=== PATIENT | female | born 1970 | race Caucasian/White ===

== ENCOUNTER 2019-08-03 12:13 | Emergency (ER) | payer BC, SELFPAY ==
[2019-08-03 12:26] VITALS: BP 97/56; PULSE 81; RESP 20; TEMP 36.9; O2SAT 98
--- NOTE | 2019-08-03 12:30 | ED.URI ---
HPI - URI/Sore Throat General Chief Complaint: Upper Respiratory Infection Stated Complaint: fever tired and achey Time Seen by Provider: 08/03/19 12:31 Source: patient, family and RN notes reviewed History of Present Illness HPI Narrative: Patient is a 49-year-old female presents the urgent care with complaints of fever, fatigue, body aches, chills. Patient states that started on Saturday and she has been using Tylenol for her symptoms [id number]. Denies any nausea or vomiting. Denies sore throat or headache. No other acute complaints. No acute distress noted. Patient read the plan of care. Related Data Home Medications Medication Instructions Recorded Confirmed calcium citrate 250 mg PO BID 04/28/19 Allergies Allergy/AdvReac Type Severity Reaction Status Date / Time strawberry Allergy Unknown Unknown Verified 08/03/19 12:39 Review of Systems Review of Systems: Narrative: CONSTITUTIONAL: Reports a fever and chills, fatigue EYES: Denies visual changes, redness, or discharge. ENT: Denies rhinorrhea, congestion, sore throat, or otalgia. CARDIOVASCULAR: Denies chest pain, palpitations, or edema. RESPIRATORY: Denies cough or dyspnea. GASTROINTESTINAL: Denies abdominal pain, nausea, vomiting, or diarrhea. GENITOURINARY: Denies dysuria or hematuria. SKIN: Denies rash or itching. MUSCULOSKELETAL: Denies back pain, joint pain; reports of body aches NEUROLOGIC: Denies headache, numbness, or weakness. All other systems reviewed are negative, except as documented in HPI. [facility] Social History Social History Smoking status: Current some day smoker Alcohol intake: current Exam Narrative: Exam Narrative: GENERAL: This is a well-nourished, well-developed patient, in no apparent distress. HEAD: normocephalic, atraumatic. EYES: PERRL. Sclera clear/white. Vision is grossly intact. EARS: External ears normal, auditory canals clear and without drainage, TMs normal without perforation. Hearing grossly intact. NOSE: External nose normal with no obvious nasal discharge, nares without redness, no rhinorrhea. THROAT: Mucous membranes moist, posterior pharynx clear. NECK: Neck supple, non-tender without lymphadenopathy CARDIOVASCULAR: Regular rate and rhythm without murmurs, gallops, or rubs. RESPIRATORY: Clear to auscultation. Breath sounds equal bilaterally. No wheezes, rales, or rhonchi. SKIN: warm, intact with no suspicious lesions or rash, good texture and turgor. NEURO: awake, alert, and oriented to person, place and time. There were no obvious focal neurologic abnormalities. EXTREMITIES: No clubbing, cyanosis, or edema. Course Vital Signs Vital signs: Vital Signs Temperature 98.5 F 08/03/19 12:26 Pulse Rate 81 08/03/19 12:26 Respiratory Rate 20 08/03/19 12:26 Blood Pressure 97/56 L 08/03/19 12:26 Pulse Oximetry 98 08/03/19 12:26 Temperature 98.5 F 08/03/19 12:26 Pulse Rate 81 08/03/19 12:26 Respiratory Rate 20 08/03/19 12:26 Blood Pressure 97/56 L 08/03/19 12:26 Pulse Oximetry 98 08/03/19 12:26 Reviewed MDM - URI/Sore Throat MDM Narrative Medical decision making narrative: Reviewed lab results with the patient. She is aware that flu swab was negative. Advised the patient to continue to use Tylenol for body aches and fever. Increase fluids and rest. Use humidifier at night. If you continue to experience high fevers associated with fatigue and body aches, follow-up with PCP or in the emergency room. Differential Diagnosis Differential diagnosis: Likely upper respiratory infection, otitis media, sinusitis, viral infection, bronchitis, influenza and pharyngitis Lab Data Attestation: I reviewed the patient's lab results. Critical Care Time Critical Care Time Critical Care Time: No Discharge Plan Discharge Clinical Impression: Acute viral syndrome Patient Disposition: Home, Self-Care Condition: Stable Instruction
== END 2019-08-03 13:10 | disposition home or self-care (01) ==
PROVIDERS: Emergency Provider Nurse Practitioner Family; PCP Family Medicine
DX: B34.9 Viral infection, unspecified (principal); F17.290 Nicotine dependence, other tobacco product, uncomplicated; K21.9 Gastro-esophageal reflux disease without esophagitis
CPT/HCPCS: 87804; 99213; G0463

== ENCOUNTER → 2019-10-14 14:11 | Outpatient (REF) | payer BC, SELFPAY | LOC: ANHLAB 14:11 | PROVIDERS: PCP Family Medicine; Visit Provider Nurse Practitioner Family | DX: D49.2 Neoplasm of unspecified behavior of bone, soft tissue, and skin (principal); C44.311 Basal cell carcinoma of skin of nose | CPT/HCPCS: 88305 ==

== ENCOUNTER → 2019-11-04 07:44 | Outpatient (REF) | payer BC, SELFPAY | LOC: ANHLAB 07:44 | PROVIDERS: PCP Family Medicine; Visit Provider Nurse Practitioner Family | DX: C44.321 Squamous cell carcinoma of skin of nose (principal) | CPT/HCPCS: 88305; 88331 ==

== ENCOUNTER 2020-01-15 18:37 | Emergency (ER) | payer BC, SELFPAY ==
[2020-01-15 18:46] VITALS: BP 126/58; PULSE 93; RESP 16; TEMP 37; O2SAT 98
--- NOTE | 2020-01-15 18:51 | ED.DENTAL ---
HPI - Dental/Oral General Chief complaint: Dental/Oral Stated complaint: Tooth Abcess Time Seen by Provider: 01/15/20 18:51 Source: patient and RN notes reviewed History of Present Illness HPI Narrative: Patient is a 49-year-old female who presents the urgent care with complaints of dental pain. Patient states that she was seen at the dentist office on Saturday and was told that her crown was cracked and that she would follow-up. Patient states that the pain been started yesterday and she called her dentist who was supposed to be able to see her this morning however, patient canceled the appointment. Patient then decided to try to go to work and her temperature was elevated so they sent her home. Patient tried to call her dentist back for the appointment and they stated that they had filled the slots and she would need to follow-up elsewhere. Her work is not letting her return until she has seen for the dental pain. Patient states she has not taken anything for her pain but does have access to tramadol at home. Patient states she does have a poor taste in her mouth but denies of any nausea or vomiting. Patient is currently afebrile. No other acute complaints. No acute distress noted. Patient read the plan of care. Related Data Home Medications Medication Instructions Recorded Confirmed calcium citrate 250 mg PO BID 04/28/19 08/03/19 Allergies Allergy/AdvReac Type Severity Reaction Status Date / Time strawberry Allergy Unknown Unknown Verified 11/26/19 13:44 Review of Systems Review of Systems: Narrative: CONSTITUTIONAL: Denies fever, chills, or sweats. EYES: Denies visual changes, redness, or discharge. ENT: Denies rhinorrhea, congestion, sore throat, or otalgia. Reports of left upper dental pain and bad taste in the mouth CARDIOVASCULAR: Denies chest pain, palpitations, or edema. RESPIRATORY: Denies cough or dyspnea. GASTROINTESTINAL: Denies abdominal pain, nausea, vomiting, or diarrhea. GENITOURINARY: Denies dysuria or hematuria. SKIN: Denies rash or itching. MUSCULOSKELETAL: Denies back pain, joint pain, or myalgia. NEUROLOGIC: Denies headache, numbness, or weakness. All other systems reviewed are negative, except as documented in HPI. [facility] Social History Social History Smoking status: Current some day smoker Alcohol intake: current Comments At the time of my signature, I reviewed and agree with the nursing past medical, surgical, social, and family history. There is no relevant family history pertinent to the patient complaint. Exam Narrative: Exam Narrative: GENERAL: This is a well-nourished, well-developed patient, in no apparent distress. HEAD: normocephalic, atraumatic. EYES: PERRL. Sclera clear/white. Vision is grossly intact. EARS: External ears normal NOSE: External nose normal with no obvious nasal discharge, nares without redness, no rhinorrhea. THROAT: Mucous membranes moist DENTAL: Left upper second molar, tooth #15 with mild surrounding erythema and cracked posterior crown NECK: Neck supple SKIN: warm, intact with no suspicious lesions or rash, good texture and turgor. NEURO: awake, alert, and oriented to person, place and time. There were no obvious focal neurologic abnormalities. EXTREMITIES: No clubbing, cyanosis, or edema. Course Vital Signs Vital signs: Vital Signs Temperature 98.6 F 01/15/20 18:46 Pulse Rate 93 01/15/20 18:46 Respiratory Rate 16 01/15/20 18:46 Blood Pressure 126/58 L 01/15/20 18:46 Pulse Oximetry 98 01/15/20 18:46 Temperature 98.6 F 01/15/20 18:46 Pulse Rate 93 01/15/20 18:46 Respiratory Rate 16 01/15/20 18:46 Blood Pressure 126/58 L 01/15/20 18:46 Pulse Oximetry 98 01/15/20 18:46 Reviewed MDM - Dental/Oral MDM Narrative Medical decision making narrative: Advised the patient to use at home prescription of tramadol or Tylenol as needed for pain. Swish with prevention mouthwash
== END 2020-01-15 19:05 | disposition home or self-care (01) ==
PROVIDERS: Emergency Provider Nurse Practitioner Family; PCP Family Medicine
DX: K04.7 Periapical abscess without sinus (principal); F17.200 Nicotine dependence, unspecified, uncomplicated; Z98.84 Bariatric surgery status; K21.9 Gastro-esophageal reflux disease without esophagitis; F32.9 Major depressive disorder, single episode, unspecified
CPT/HCPCS: 99213; G0463

== ENCOUNTER 2023-05-20 14:45 | Outpatient (RCR) | payer BC, SELFPAY ==
--- NOTE | 2023-03-15 09:39 | PTOPEVAL1 ---
Assessment and note entered by Yesi Barragan, PT Evaluation Information Assessment Status Evaluation Diagnosis Ataxia, CVA Therapy Conditions oth. abnormalities of gait and mobility, weakness Onset 05/2022 Subjective Information Was living in [place] had first stroke and a second stroke the next day. Was airlifted to [facility]. The was sent to [facility]. Had Foot drop and started doing my own therapy . Started walkin in hallways, sit to stands in chair. Was waiting for Insurance to clear and one of the therapists gave her some homework to work on her own. Was moved to [facility] once a week very minimal. Now has jimmie able to move into home with her daughter's father's home on a single level. Daughter will be moving in soon Reported Pain Level Pain Score 0: Self Report Assessment PT Clinical Summary Pt presents s/p stroke in 05/2022. Has extensive medical history related to stroke and prior to stroke. Pt cont to demo gait abnormality, decreased strength, balance and coordination deficits as well. Currently has significant limitations due to her eyesight but will be receiving corrective lenses soon to assist in this . Pt will thus benefit from physical therapy to address deficits and improve functional indepenence. Plan of Care Interventions Electrical Stimulation,Gait Training,Neuro Re- education,Therapeutic Activities,Therapeutic Exercise PT Services Indicated Yes Treatment Frequency and 2x weekly x 8 weeks starting after receiving her Duration glasses These treatments will address the objective and functional deficits as defined above. The patient will be advanced safely and appropriately in order for the patient to progress towards his/her prior level of function. Additional exercises will be introduced and as well as a comprehensive home exercise program upon discharge, if needed, ?to ensure carryover of functional gains achieved in the clinic. This treatment plan has been reviewed and agreement upon by the patient.
--- NOTE | 2023-03-15 09:42 | OPREHPOC ---
Outpatient Therapy Plan of Care This is a Multidisciplinary Plan of Care that may contain components documented by all disciplines (PT, OT, and ST.) PT Goal 1 Goal Pt will be independent in HEP Target Visit 15 PT Goal 2 Goal Pt will verbalize understanding of diagnosis and prognosis Target Visit 30 PT Problem 2 PT Problem #2 Impaired Strength PT Goal 1 Goal Pt will demo equal strength RLE and LLE in all tested planes Target Visit 15 PT Goal 2 Goal Pt will demo strength of 5/5 in all tested planes Target Visit 30 PT Problem 3 PT Problem #3 Impaired Balance PT Goal 1 Goal Pt will demo score of 5 times sit>manager [place] 15 seconds or less with confidence Target Visit 15 PT Goal 2 Goal Pt will demo standing balance with feet together on firm surface, eyes open, for 30 seconds without hand held assist Target Visit 30 PT Problem 4 PT Problem #4 Impaired Gait PT Goal 1 Goal Pt will demo ambulation of 150 ft without assist for path deviations 2w-w Target Visit 15 PT Goal 2 Goal Pt will demo 2 min walk test of 300 ft with LRAD Target Visit 30
--- NOTE | 2023-04-05 13:23 | PCPTNOTE ---
The patient treatment was not able to be completed on 04/03/23 due to staffing shortage. Will plan to continue treatment per plan of care.
--- NOTE | 2023-05-14 12:55 | STOPEVAL1 ---
Assessment and note entered by Elham Santos PERSONALIZED LIVING ASSISTANT Evaluation Information Assessment Status Evaluation Diagnosis Cognitive Impairment Onset May 2022 Subjective Information Patient arrived to the clinic with her ex- and attended her evaluation independently. Patient alert, cooperative and a good historian of all pertinent information. Reported Pain Level Pain Score 0: Self Report Assessment ST Clinical Summary Jennifer Goodman is a 53 year old female with a past medical history significant for a CVA in May of 2022. Patient was fully independent prior to the stroke. She moved into a residential in August of 2022 and moved out and into her ex- husbands home in February of 2023. Patient reports prior ST services in her residential for improved cognition that she graduated from. Currently, she reports her biggest barriers to further independence are her vision and problem solving. After initial interview, patient began her assessment by completing the MoCA-BLIND with a score of 15/22 falling three points below normal limits. Patient demonstrated deficits in problem solving and short term memory. Patient continued with an informal cognitive assessment. Patient completed simple problem solving with 100% accuracy, complex problem solving with 80% accuracy, sequencing with 100% accuracy, sorting and categorization with 100% accuracy and functional math with 80% accuracy. Throughout evaluation, patient independently described a variety of compensatory strategies she uses to improve memory and problem solving. Strategies described include describing semantic features to improve word-finding as well as using voice memos to improve compensate for short term memory deficits. Patient is very involved in her care and participates in sorting medications and finance tasks with her daughter; however, her vision is her current barrier to completing these tasks with independence. Due to vision barriers and independent use of compensatory strategies, patient is not recommended to participate in skilled ST services at this time. Patient
--- NOTE | 2023-05-14 12:58 | STOPDC ---
Assessment and note entered by Elham Santos TOOL ROOM LATHE OPERATOR Evaluation Information Assessment Status Discharge Diagnosis Cognitive Impairment Onset May 2022 Subjective Information Patient arrived to the clinic with her ex- and attended her evaluation independently. Patient alert, cooperative and a good historian of all pertinent information. Reported Pain Level Pain Score 0: Self Report Assessment ST Clinical Summary Jennifer Goodman is a 53 year old female with a past medical history significant for a CVA in May of 2022. Patient was fully independent prior to the stroke. She moved into a senior care in August of 2022 and moved out and into her ex- husbands home in February of 2023. Patient reports prior ST services in her senior care for improved cognition that she graduated from. Currently, she reports her biggest barriers to further independence are her vision and problem solving. After initial interview, patient began her assessment by completing the MoCA-BLIND with a score of 15/22 falling three points below normal limits. Patient demonstrated deficits in problem solving and short term memory. Patient continued with an informal cognitive assessment. Patient completed simple problem solving with 100% accuracy, complex problem solving with 80% accuracy, sequencing with 100% accuracy, sorting and categorization with 100% accuracy and functional math with 80% accuracy. Throughout evaluation, patient independently described a variety of compensatory strategies she uses to improve memory and problem solving. Strategies described include describing semantic features to improve word-finding as well as using voice memos to improve compensate for short term memory deficits. Patient is very involved in her care and participates in sorting medications and finance tasks with her daughter; however, her vision is her current barrier to completing these tasks with independence. Due to vision barriers and independent use of compensatory strategies, patient is not recommended to participate in skilled ST services at this time. Patient
--- NOTE | 2023-05-20 15:52 | PTOPDC ---
Assessment and note entered by Yesi Barragan, PT Assessment Status Discharge Diagnosis Ataxia, CVA Onset 05/2022 Subjective Information Pt reports had vision therapy recently. Blurred vision and dizziness has not worsened recently States recent MRA shows a brain aneurysm Hasn't had the EEG yet, has been rescheduled States has been walking in home with lite touch on walker, doing her sit to stands and exercise bands sitting at home. Doing better on steps and getting into and out for the house. Reported Pain Level Pain Score 0: Self Report Assessment PT Clinical Summary Pt made progress in quality of movement and navigation with rollator, improved step length. Mild improvements in some muscle groups but not in others as well as what appears to be a decrease in right hip strength that is more related to pain than strength. Pt is highly limited in her balance and mobility due to significant vision deficits for which she is working with vision therapy as well as eye doctor to improve this situation. Pt has reported being overwhelmed with all her therapies and doctors appointments. Thus patient and therapist have decided to discharge from physical therapy at this time to focus on visual field correction then reassess new plan of care at a later date.
== END 2023-05-29 13:37 | disposition home or self-care (01) ==
LOC: ANHHIPT 14:45
PROVIDERS: PCP Family Medicine; Visit Provider Physician Assistant Medical
DX: R27.0 Ataxia, unspecified (principal); I63.9 Cerebral infarction, unspecified
CPT/HCPCS: 92507; 96125; 97110; 97112; 97116; 97162; 97750

== ENCOUNTER 2024-08-01 08:49 | Outpatient (CLI) | payer BC, SELFPAY ==
[2024-08-01 09:23] LABS: Alanine Aminotransferase 16 U/L (6-35); Albumin Level 4.3 g/dL (3.5-5.1); Alkaline Phosphatase 78 U/L (38-126); Anion Gap 9 mmol/L (4-12); Aspartate Amino Transferase 17 U/L (14-36); Basophils Percent Auto 0.9 % (0.2-1.2); Bilirubin,Total 0.8 mg/dL (0.2-1.3); Blood Urea Nitrogen 10 mg/dL (7-17); Calcium 9.9 mg/dL (8.4-10.2); Carbon Dioxide 28 mmol/L (22-30); Chloride 106 mmol/L (98-107); Cholesterol 172 mg/dL (0-200); Eosinophils Absolute Auto 0.1 K/mm3 (0-0.3); Estimated Glomerular Filt Rate > 60; Glucose 91 mg/dL (65-110); HDL Direct 68 mg/dL; Hemoglobin 14.3 g/dL (12.0-15.0); Immature Granulocyte Absolute 0.01 K/mm3 (0.00-0.031); Immature Granulocyte Percent A 0.2 % (0-0.5); Lymphocytes Absolute Auto 1.41 K/mm3 (0.9-3.2); Lymphocytes Percent Auto 31.4 % (18.3-44.2); Mean Corpuscular HGB Conc 32.5 g/dl (32-36); Mean Corpuscular Hemoglobin 31.4 pg (26-34); Mean Corpuscular Volume 96.5 fl (80-100); Mean Platelet Volume 10.5 fl (7.4-10.4); Monocytes Absolute Auto 0.3 K/mm3 (0.1-0.6); Monocytes Percent Auto 6.9 % (2.6-8.5); Neutrophils Absolute Auto 2.6 K/mm3 (1.3-6.7); Neutrophils Percent Auto 58.6 % (45.5-73.1); Platelet Count Result 197 k/mm3 (150-375); Potassium 4.1 mmol/L (3.4-5.0); Red Blood Count 4.56 M/mm3 (4.2-5.4); Red Cell Distribution Width 12.8 % (11.5-14.5); Sodium 143 mmol/L (137-145); Triglycerides 114 mg/dL (<150); White Blood Count 4.5 K/mm3 (4.5-10.0)
[2024-08-01 09:34] LABS: LDL Cholesterol Direct 63 mg/dL
[2024-08-01 09:39] LABS: Vitamin D 25 Hydroxy 73.1 ng/mL
[2024-08-01 09:52] LABS: Thyroid Stimulating Hormone 0.595 uIU/mL (0.465-4.680)
== END 2024-08-01 08:50 | disposition home or self-care (01) ==
PROVIDERS: PCP Family Medicine
DX: E55.9 Vitamin D deficiency, unspecified (principal); Z13.1 Encounter for screening for diabetes mellitus; Z13.220 Encounter for screening for lipoid disorders; Z13.29 Encounter for screening for other suspected endocrine disorder; Z13.0 Encounter for screening for diseases of the blood and blood-forming organs and certain disorders involving the immune mechanism
CPT/HCPCS: 36415; 80053; 80061; 82306; 84443; 85025